=== PATIENT | male | born 1980 | race Caucasian/White ===

== ENCOUNTER 2017-06-15 13:31 | Emergency (ER) | payer OTHER ==
--- NOTE | 2017-06-15 15:44 | RAD ---
Indication: Facial injury. CT of the brain was performed without IV contrast. Ventricular structures are midline. No midline shift is noted. The extraction spaces are unremarkable. There is no evidence of intracranial mass or hemorrhage. No other high or low density lesions are identified. Mastoid air cells and paranasal sinuses are otherwise unremarkable. IMPRESSION: No intracranial mass or hemorrhage is noted.
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
[2017-06-15] MEDS ORDERED: Acetaminophen TAB* 325 MG PO ONE (16:03)
[2017-06-15 16:24] VITALS: BP 104/82
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
== END 2017-06-15 16:27 | disposition home or self-care (01) ==
LOC: ED 13:31
DX: S00.83XA Contusion of other part of head, initial encounter (principal); S02.2XXA Fracture of nasal bones, initial encounter for closed fracture; Y04.2XXA Assault by strike against or bumped into by another person, initial encounter; Y93.9 Activity, unspecified; Y92.199 Unspecified place in other specified residential institution as the place of occurrence of the external cause; J34.2 Deviated nasal septum; R51 Headache; R04.0 Epistaxis; Z88.1 Allergy status to other antibiotic agents
CPT/HCPCS: 70450; 70486; 72125; 99282; A9270-GY